=== PATIENT | female | born 1955 | race Caucasian/White ===

== ENCOUNTER 2017-01-17 13:05 | Emergency (ER) | payer OTHER ==
[2017-01-17 13:36] VITALS: TEMP 97.7; O2SAT 95
--- NOTE | 2017-01-17 14:00 | RAD ---
EXAM DESCRIPTION: Left foot, three views. CLINICAL HISTORY: Lateral midfoot pain. Twisting injury. FINDINGS/IMPRESSION: Nondisplaced transverse fracture proximal epiphysis base of the 5th metatarsal with associated overlying soft tissue swelling No other fracture or osteochondral lesion No advanced osteoarthritis or osteochondral lesion of the ankle or midfoot. 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 Small well corticated plantar calcaneal spur. Calcaneal enthesophyte at the Achilles tendon attachment Electronically signed by: Charlie Rinaldi MD 01/17/2017 13:57
[2017-01-17] MEDS ORDERED: KETOROLAC TROMETHAMINE INJ 30 MG/ML VIAL IM ONE (14:09)
[2017-01-17] MEDS ORDERED: HYDROcodone 5MG/APAP 325MG 1 EA TAB PO ONE (14:09)
--- NOTE | 2017-01-17 14:12 | ED.PDOC ---
History of Present Illness - General Chief Complaint: Lower Extremity Injury Stated Complaint: left foot pain Time Seen by Provider: 01/17/17 13:36 Source: patient Exam Limitations: no limitations - History of Present Illness Initial Comments: the patient is 61-year-old female presenting to the emergency room secondary to left foot pain after twisting it while getting up from the couch. The patient has a bruise towards the dorsal lateral aspect of the foot.she has pain over the proximal aspect of the fifth metatarsal. No pain over the medial and lateral malleolus. She is neurovascularly intact. No previous injuries at the site. No other injuries. Timing/Duration: momentarily Severity: severe Improving Factors: immobilization Worsening Factors: movement Associated Symptoms: denies symptoms Allergies/Adverse Reactions: Allergies Sulfamethoxazole w/Trimethoprim [From ] Allergy (Verified 01/17/17 13:37) Home Medications: Ambulatory Orders Amlodipine Besylate-Benazepril [Lotrel] 200 cap PO DAILY 07/17/13 Estradiol 2 mg PO DAILY 07/17/13 Fluoxetine HCl [Prozac] 20 PO DAILY 07/17/13 Mometasone Furoate Nasal Parks [Nasonex] 17 gm DAWIT DAILY 07/17/13 Mivlgzljrtyxr-Jsvd-Rwswmqnucz [Fioricet] 1 ea PO Q8H PRN #21 tab 01/17/17 Review of Systems - Review of Systems Constitutional: States: no symptoms reported EENTM: States: no symptoms reported Respiratory: States: no symptoms reported Cardiology: States: no symptoms reported Gastrointestinal/Abdominal: States: no symptoms reported Genitourinary: States: no symptoms reported Musculoskeletal: States: see HPI Skin: States: no symptoms reported Neurological: States: no symptoms reported All other Systems: No Change from Baseline Past Medical History (General) - Patient Medical History Hx Asthma: No Hx Congestive Heart Failure: No Hx Diabetes: No Surgical History: Hysterectomy - Vaccination History Hx Tetanus, Diphtheria Vaccination: No Hx Influenza Vaccination: No Hx Pneumococcal Vaccination: No - Social History Hx Tobacco Use: No Hx Alcohol Use: Yes - wine Hx Substance Use: No Hx Substance Use Treatment: No Hx Depression: No - Activities of Daily Living Hospice Agency (if applicable):: None - Female History Patient is a Female of Child Bearing Age (10 -59 yrs old): No Patient : No Family Medical History - Family History Mother Family History: Unknown Physical Exam - Physical Exam General Appearance: Alert, Comfortable, No apparent distress Eye Exam: bilateral normal Ears, Nose, Throat: normal ENT inspection, normal pharynx Neck: non-tender, full range of motion, supple, normal inspection Respiratory: normal breath sounds, no respiratory distress Cardiovascular/Chest: normal peripheral pulses, regular rate, rhythm Peripheral Pulses: radial,right: 2+, radial,left: 2+, dorsalis pedis,right: 2+, dorsalis pedis,left: 2+, posterior tibialis,right: 2+, posterior tibialis,left: 2+ Extremity: normal range of motion, no pedal edema, no calf tenderness, normal capillary refill, other - C history of present illness. Normal range of motion of the ankle. Neurologic: alert, normal mood/affect, oriented x 3 Skin Exam: normal color Comments: Vital Signs - 24 hr 01/17/17 13:25 Temperature 97.7 F Pulse Rate [ 95 H pulse ox] Respiratory 20 Rate Blood Pressure 156/81 [Left Arm] O2 Sat by Pulse 95 Oximetry Progress - Progress Progress: 01/17/17 14:12 the patient is a 61-year-old female with a left lateral sprained ankle and a fifth metatarsal nondisplaced fracture towards the base. She will be placed in a walking boot for a period of at least 1 month. She needs a repeat evaluation in 2 weeks to confirm healing. Motrin and Tylenol can be used for discomfort and she will be written for a short prescription of Fioricet. ER warnings were given for any acute worsening. Departure - Departure Clinical Impression: Sprain of left ankle or foot Fracture of foot Qualifiers: Encounter type: initial encounter Fracture type: closed Laterality: left Qualifier Code: (S92.902A) Unspecified fracture of left foot, initial encounter for closed fracture Disposition: Discharge to Home or Self Care Condition: Fair Departure Forms: ED Discharge - Pt. Copy, Patient Portal Self Enrollment Instructions: DI for Metatarsalgia Diet: regular diet Activity: increase activity as tolerated Referrals: Percy Fonseca MD [Primary Care Provider] - 1-2 Weeks Prescriptions: Egmiyjacfnjsp-Dhnz-Maopmzsajm [Fioricet] 1 ea PO Q8H PRN #21 tab PRN Reason: Pain Home Medications: Ambulatory Orders Amlodipine Besylate-Benazepril [Lotrel] 200 cap PO DAILY 07/17/13 Estradiol 2 mg PO DAILY 07/17/13 Fluoxetine HCl [Prozac] 20 PO DAILY 07/17/13 Mometasone Furoate Nasal [place] [Nasonex] 17 gm DAIWT DAILY 07/17/13 Cvnhrzkypanpi-Biuy-Gvhbdrargl [Fioricet] 1 ea PO Q8H PRN #21 tab 01/17/17 Additional Instructions: the patient is a 61-year-old female with a left lateral sprained ankle and a fifth metatarsal nondisplaced fracture towards the base. She will be placed in a walking boot for a period of at least 1 month. She needs a repeat evaluation in 2 weeks to confirm healing. Motrin and Tylenol can be used for discomfort and she will be written for a short prescription of Fioricet. ER warnings were given for any acute worsening.
[2017-01-17 14:53] VITALS: BP 168/92
== END 2017-01-17 14:54 | disposition home or self-care (01) ==
LOC: ER 13:05
DX: S92.902A Unspecified fracture of left foot, initial encounter for closed fracture (principal); S93.402A Sprain of unspecified ligament of left ankle, initial encounter; Z88.2 Allergy status to sulfonamides; X50.1XXA Overexertion from prolonged static or awkward postures, initial encounter
CPT/HCPCS: 73630; J1885

== ENCOUNTER → 2017-08-25 | Outpatient (CLI) | payer OTHER | END | disposition home or self-care (01) | LOC: GMAH 11:02 | PROVIDERS: ATTEND Family Medicine | DX: E78.2 Mixed hyperlipidemia (principal) ==

== ENCOUNTER → 2018-11-10 | Outpatient (CLI) | payer OTHER | LOC: GMAH 10:41 | PROVIDERS: ATTEND Family Medicine | DX: I10 Essential (primary) hypertension (principal) ==

== ENCOUNTER → 2020-05-21 | Outpatient (CLI) | payer MEDICARE | LOC: GMA MATASK 12:03 | PROVIDERS: ATTEND Family Medicine | DX: I10 Essential (primary) hypertension (principal); E78.2 Mixed hyperlipidemia ==